=== PATIENT | male | born 2000 | race African-American/Black ===

== ENCOUNTER 2023-11-03 16:32 | Emergency (ER) | payer BC, SELFPAY ==
[2023-11-03 16:47] VITALS: BP 112/73; PULSE 83; RESP 18; TEMP 37.7; O2SAT 96; BMI 21.4
[2023-11-03 16:50] VITALS: BP 118/74; PULSE 79; RESP 18; TEMP 36.9; O2SAT 96
--- NOTE | 2023-11-03 16:51 | ED_ITS ---
HPI - Extremity Injury (Lower) General Time Seen by Provider: 16:52 Date Seen: 11/03/23 Chief Complaint: Extremity Pain/Injury, Lower Stated Complaint: Soccer injury, L ankle Time Seen by Provider: 11/03/23 16:51 Source: patient, family and RN notes reviewed Mode of arrival: wheelchair Limitations: no limitations History of Present Illness HPI Narrative: Rinku is a very pleasant 23-year-old young man previously healthy who is brought to the emergency room by some parents on the [employer] soccer team for evaluation regarding left ankle injury. Patient is here playing against [employer]. States the player from the other team came in with his cleats hitting his ankle causing an inversion-type injury. Since that time he states his foot is kind of ?hanging wrong. He has some foot discomfort but mostly his ankle hurts. It has not fractured her injured his ankle in the past. He is otherwise a healthy gentleman. He has no other injuries here today. Currently on blood thinners. Related Data Home Medications ?Medication ?Instructions ?Recorded ?Confirmed No Known Home Medications 11/03/23 11/03/23 Allergies Allergy/AdvReac Type Severity Reaction Status Date / Time No Known Drug Allergies Allergy Verified 11/03/23 16:50 Review of Systems Narrative: Has been healthy. No other injury today. No numbness or tingling. PFSH PFS Social History Smoking Status: Never smoker Do you use any of these nicotine containing products: None How often do you have a drink containing alcohol: never AUDIT-C Alcohol total score: 0 Non-prescribed substance use: denies use Exam Narrative: Exam Narrative: Alert and oriented. No acute distress. His left ankle is in a splint. Distally sensation and motor intact. Upon return from x-ray re-examination shows no discomfort with palpation over the proximal fibular area. Splint is removed and there is significant swelling at the ankle. No pain with palpation over the a foot or toes. Sensation motor intact. Good pedal pulses noted. Const: Vital Signs, click to edit/add: Vital Signs - 24 hr 11/03/23 16:47 Temperature 99.9 F H Pulse Rate [Right Pulse Oximeter] 83 Respiratory Rate 18 Blood Pressure [Ri ght Upper Arm] 112/73 Pulse Oximetry 96 Oxygen Delivery Me thod Room Air Documenting provider has reviewed patient's vital signs: yes Course Course ED Course: Patient is sent to x-ray with his splint intact. X-rays of the foot and ankle pending Reevaluation(s) Reevaluation #1: Unfortunately by my read we do see a fibular fracture. Vital Signs Vital signs: Initial Vital Signs Temperature 99.9 F H 11/03/23 16:47 Temperature Source Temporal Artery Scan 11/03/23 16:47 Pulse Rate 83 11/03/23 16:47 Respiratory Rate 18 11/03/23 16:47 Blood Pressure 112/73 11/03/23 16:47 Blood Pressure Mean 86 11/03/23 16:47 Blood Pressure Position Sitting 11/03/23 16:47 Pulse Oximetry 96 11/03/23 16:47 Oxygen Delivery Method Room Air 11/03/23 16:47 Vital Signs Temperature 99.9 F H 11/03/23 16:47 Pulse Rate 83 11/03/23 16:47 Respiratory Rate 18 11/03/23 16:47 Blood Pressure 112/73 11/03/23 16:47 Pulse Oximetry 96 11/03/23 16:47 Oxygen Delivery Method Room Air 11/03/23 16:47 Temperature 99.9 F H 11/03/23 16:47 Pulse Rate 83 11/03/23 16:47 Respiratory Rate 18 11/03/23 16:47 Blood Pressure 112/73 11/03/23 16:47 Pulse Oximetry 96 11/03/23 16:47 Oxygen Delivery Method Room Air 11/03/23 16:47 Medications Administered Medications: Generic Name Dose Route Start Last Admin Trade Name Philipp PRN Reason Stop Dose Admin Hydrocodone Bitart/Acetaminophen 1 tab 11/03/23 18:33 11/03/23 18:36 Hydrocodone/Acetamin 7.5-325 Tablet PO 11/03/23 18:34 1 tab ONCE ONE Administration MDM - Extremity Injury (Lower) MDM Narrative Medical decision making narrative: 1. Left leg fracture-distal fibula shows a fracture. Further exam shows no discomfort with palpation over the proximal fibula. No evidence of fractures in the foot. Unfortunately after discussion with Orthopedics this is most likely a surgical repair. Patient is from the [facility] and will need to find Orthopedics in his hometown. He is driving back there tonight with friends. Patient is placed in a Tk David splint and tolerated procedure well after being given [place] 7.5/325 for pain control. Will be given crutches and pain medications to go home. 2. Disposition-home with adult parents from the soccer team. Patient will be riding in a car with his leg elevated. [place] 5/3 25 1-2 tablets p.o. Q 4-6 hours is available through our [facility] machine 20. Tablets. 20. Given because he will not likely be able to see Orthopedics until Sunday or Sunday. Discussed problems with constipation and likely need for a stool softener. Patient may take ibuprofen 1st 600 mg every 8 hours to see if this is helpful for the discomfort. Recommend following up with ER in seeking medical attention for worsening symptoms especially pain not controlled by medications, cold foot, worsening symptoms. Imaging Data Left ankle x-rays: Attestation: I have reviewed the pertinent imaging results. My impression: Obvious fracture of the distal fibula. Tibia appears to be intact. Radiologist's impression: Acute fracture of the distal shaft of the left fibula with proximally 4 millimeters of anterolateral displacement of the distal fragment with respect to the proximal fragment. Disruption of the ankle mortise with abnormal widening of the medial tibiotalar joint space. Tiny avulsion fracture fragments projected over the widened medial tibiotalar joint space on the AP view. No additional fracture or dislocation identified in the left foot. Left foot x-ray: Attestation: I have reviewed the pertinent imaging results. My impression: I do not see any fractures in the foot x-ray. Radiologist's impression: Acute fracture of the distal shaft of the left fibula with proximally 4 millimeters of anterolateral displacement of the distal fragment with respect to the proximal fragment. Disruption of the ankle mortise with abnormal widening of the medial tibiotalar joint space. Tiny avulsion fracture fragments projected over the widened medial tibiotalar joint space on the AP view. No additional fracture or dislocation identified in the left foot. Discharge Plan Discharge Clinical Impression: Closed fibular fracture Qualifiers: Encounter type: initial encounter Fibula location: distal Fracture morphology: unspecified fracture morphology Laterality: left Qualified Code(s): S82.832A - Other fracture of upper and lower end of left fibula, initial encounter for closed fracture Patient Disposition: Home, Self-Care Condition: Improved Additional Instructions: Splint is nonweightbearing. Use crutches and do not bear weight. Try to keep the ankle elevated as much as possible. For pain you may use ibuprofen 600 mg every 8 hours. For pain not relieved by ibuprofen you may add [place] also known as Vicodin or hydrocodone and Tylenol. I have placed a prescription in our [facility] vending machine for you. Please be aware that this may cause constipation and you may want to add a stool softener such as Colace to your medications. For pain not relieved by [place] I would like you to proceed to an emergency room for evaluation. Otherwise, follow up as soon as possible with Orthopedics as you are likely going to need surgery for the repair of this injury. It was a pleasure to meet you today. Safe travels back to the [facility]. Prescriptions: No Action No Known Home Medications Follow Up/Referrals: Provider,Not a Local [Primary Care Provider] - Stand Alone Forms: [facility] Info Instructions Procedures Orthopedic Splinting/Casting Injury #1: Side: left Lower Extremity Injury Location: lower leg and ankle Lower extremity immobilizer: other (Tk David) Applied by clinician: MD/DO Other Orthopedic Equipment: crutches Conclusion: patient tolerated procedure Additional Comments: Significant padding placed on foot ankle and lower leg. 4 in splinting material used to create Tk David splint with medial and lateral support. Shmuel wrap used. Foot placed at 90 decreased and patient tolerated procedure well. CMS checked after application and intact.
--- NOTE | 2023-11-03 16:56 | CRLHL7_ITS ---
For Patients: As a result of the Cures Act, medical imaging exams and procedure reports are released immediately into your electronic medical record. You may view this report before your referring provider. If you have questions, please contact your health care provider. INDICATION: SOCCER INJURY LEFT ANKLE AND LEFT FOOT INDICATION: Soccer injury. COMPARISON: None. FINDINGS/IMPRESSION: Acute fracture of the distal shaft of the left fibula with proximally 4 millimeters of anterolateral displacement of the distal fragment with respect to the proximal fragment. Disruption of the ankle mortise with abnormal widening of the medial tibiotalar joint space. Tiny avulsion fracture fragments projected over the widened medial tibiotalar joint space on the AP view. No additional fracture or dislocation identified in the left foot. Dictated by Haroon Mattson MD @ 11/03/2023 6:05:18 PM Dictated by: Haroon Mattson MD @ 11/03/2023 18:08:05 (Electronically Signed)
--- NOTE | 2023-11-03 16:56 | CRLHL7_ITS ---
For Patients: As a result of the Cures Act, medical imaging exams and procedure reports are released immediately into your electronic medical record. You may view this report before your referring provider. If you have questions, please contact your health care provider. LEFT ANKLE AND LEFT FOOT INDICATION: Soccer injury. COMPARISON: None. FINDINGS/IMPRESSION: Acute fracture of the distal shaft of the left fibula with proximally 4 millimeters of anterolateral displacement of the distal fragment with respect to the proximal fragment. Disruption of the ankle mortise with abnormal widening of the medial tibiotalar joint space. Tiny avulsion fracture fragments projected over the widened medial tibiotalar joint space on the AP view. No additional fracture or dislocation identified in the left foot. Dictated by Haroon Mattson MD @ 11/03/2023 6:05:18 PM Dictated by: Haroon Mattson MD @ 11/03/2023 18:07:35 (Electronically Signed)
[2023-11-03] MEDS: HYDROCODONE/ACETAMIN 7.5-325 TABLET 1 TAB PO (18:36)
[2023-11-03 19:00] VITALS: O2SAT 99
== END 2023-11-03 19:20 | disposition home or self-care (01) ==
PROVIDERS: Emergency Provider Family Medicine
DX: S82.832A Other fracture of upper and lower end of left fibula, initial encounter for closed fracture (principal); Y93.66 Activity, soccer
CPT/HCPCS: 73610; 73620; 94761; 99284; A9270